=== PATIENT | male | born 1955 | race Caucasian/White ===

== ENCOUNTER 2021-11-23 11:15 | Outpatient (CLI) | payer MEDICARE, BC ==
--- NOTE | 2021-11-23 11:47 | Ultrasound Report ---
PROCEDURE: Aorta Screening INDICATIONS: AAA SCREENING TECHNIQUE: Real time scanning was performed of the aorta and iliac arteries, with image documentatio n. COMPARISON: None FINDINGS: Aorta: Proximal aortic diameter measures 2.7 x 2.6 x 2.6 cm. Mid-aorta measures 2.0 x 2.1 x 2.6 cm. Distal aortic diameter is 1.9 x 2.0 x 2.2 cm. Iliac arteries: Right common iliac artery measures 1.3 x 1.3 x 1.2 cm. Left common iliac artery laureano sures 1.2 x 1.3 by 1.4 cm. IMPRESSION: No aneurysm by size criteria. Reviewed by: Arvind Cote DO on 11/23/2021 10:46 AM CHASE Approved by: Arvind Cote DO on 11/23/2021 10:46 AM [place] Station ID: [id number]
== END 2021-11-23 11:16 | disposition home or self-care (01) ==
LOC: DI 11:15
PROVIDERS: ATTEND Family Medicine
DX: Z13.6 Encounter for screening for cardiovascular disorders (principal); R09.89 Other specified symptoms and signs involving the circulatory and respiratory systems